=== PATIENT | male | born 1955 | race Caucasian/White ===

== ENCOUNTER 2018-07-21 12:56 | Day surgery (SDC) | payer MEDICARE, OTHER ==
[~2018-07-21 12:56] MED LIST: ROCURONIUM 50 MG INJ
[2018-07-21] MEDS ORDERED: LACTATED RINGER'S 1,000 ML IV (14:30)
[2018-07-21] MEDS ORDERED: MIDAZOLAM 1 MG/ML 2 ML INJ (15:08)
[2018-07-21] MEDS ORDERED: ONDANSETRON 4 MG INJ (15:08)
[2018-07-21] MEDS ORDERED: METOCLOPRAMIDE 10 MG INJ (15:08)
[2018-07-21] MEDS ORDERED: PROPOFOL 20 ML (15:08)
[2018-07-21] MEDS ORDERED: ROPIVACAINE 0.2% 20 ML VIAL ×2 (15:09→18:07)
[2018-07-21] MEDS ORDERED: FENTAnyl 50 MCG/ML VIAL (15:17)
[2018-07-21] MEDS ORDERED: ROPIVACAINE 0.5 % 30 ML VIAL ×2 (15:19→15:27)
[2018-07-21] MEDS ORDERED: CEFAZOLIN 1 GM INJ (15:41)
[2018-07-21] MEDS ORDERED: morphine 2 MG INJ IV (16:00)
[2018-07-21] MEDS: POLYMYXIN/BACITRACIN 1L IRRIG (16:44)
[2018-07-21] MEDS: BACITRACIN/POLYMYXIN 28.35 GM OINT TOP (16:44)
[2018-07-21] MEDS ORDERED: KETOROLAC 30 MG INJ (17:32)
[2018-07-21] MEDS ORDERED: HYDROmorphONE 2 MG/ML SYG (17:57)
[2018-07-21] MEDS ORDERED: KETOROLAC 30 MG INJ IV ×2 (18:00→18:38)
[2018-07-21] MEDS ORDERED: MEPERIDINE 100 MG INJ (18:07)
== END 2018-07-21 20:05 | disposition home or self-care (01) ==
LOC: SDS 12:56
DX: S82.841A Displaced bimalleolar fracture of right lower leg, initial encounter for closed fracture (principal); S93.431A Sprain of tibiofibular ligament of right ankle, initial encounter; W01.0XXA Fall on same level from slipping, tripping and stumbling without subsequent striking against object, initial encounter; Y92.89 Other specified places as the place of occurrence of the external cause
CPT/HCPCS: 27814; 73610-RT; 82306